=== PATIENT | male | born 1955 | race Hispanic/Latino ===

== ENCOUNTER 2020-01-13 16:19 | Emergency (ER) | payer OTHER ==
[2020-01-13 17:08] LABS: BASOPHILS % (AUTO) 0.7 % (0.0-5.0); HEMATOCRIT 47.9 % (42-54); LYMPHOCYTES % (AUTO) 20.6 % (21.0-51.0); MEAN CORPUSCULAR HEMOGLOBIN 28.4 pg (27.0-33.0); MEAN CORPUSCULAR HGB CONC 31.9 g/dL (32.0-36.0); MEAN CORPUSCULAR VOLUME 88.9 fL (79-99); MONOCYTES % (AUTO) 6.9 % (3.0-13.0); NEUTROPHILS % (AUTO) 70.5 % (40.0-77.0); PLATELET COUNT (AUTO) 147 K/uL (130-400); RED BLOOD CELL COUNT(AUTO) 5.39 MIL/uL (4.50-6.20); RED CELL DISTRIBUTION WIDTH 12.9 % (11.0-15.5); WHITE BLOOD COUNT (AUTO) 9.9 K/uL (4.8-10.8)
[2020-01-13 17:19] LABS: POTASSIUM 3.8 mmol/L (3.5-5.1)
[2020-01-13] MEDS ORDERED: ACETAMINOPHEN 325 MG TAB ONE (17:54)
== END 2020-01-13 18:31 | disposition home or self-care (01) ==
LOC: EDH 16:19
DX: R50.9 Fever, unspecified (principal); R06.02 Shortness of breath; R05 Cough; Z20.828 Contact with and (suspected) exposure to other viral communicable diseases
CPT/HCPCS: 36415; 71045; 80048; 84484; 85025; 87426; 87804 ×2; 93005; 99285; U0003